=== PATIENT | female | born 2000 | race Caucasian/White ===

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

== ENCOUNTER 2024-01-06 00:17 | Emergency (ER) | payer OTHER, SELFPAY ==
[2024-01-06 00:19] VITALS: BP 146/80; PULSE 94; RESP 17; TEMP 36.8; O2SAT 99; BMI 54.3
--- NOTE | 2024-01-06 00:41 | [facility].EDGENADL ---
Discharge Plan Disposition Patient Disposition: Home, Self-Care Prescriptions Prescriptions: New ondansetron HCl 4 mg tablet 4 mg PO Q8H PRN (Reason: nausea and vomiting) 5 Days Qty: 30 0RF amoxicillin-pot clavulanate 875-125 mg tablet 1 tab PO BID 7 Days Qty: 14 0RF Referrals Follow up/Referrals: Tristen Blount [Primary Care Provider] - See instructions Activity Restrictions/Add. Instructions Additional Instructions/Restrictions: Please take antibiotics as prescribed for treatment of urinary tract infection. Please take Zofran as needed for nausea vomiting and dehydration. Please establish follow-up with [facility]. Clinical Impressions Clinical Impression: UTI (urinary tract infection), Nausea and vomiting during Instructions Patient Instructions: DI for Diarrhea and Traveler's Diarrhea -- Adult, DI for Diarrhea and Traveler's Diarrhea -- Child, DI for Nausea -- Adult, DI for Nausea -- Child Discharge ED Provider: Nik Ellis General Adult HPI General Chief complaint: Nausea/Vomiting/Diarrhea Stated complaint: vomiting Time Seen by Provider: 01/06/24 00:25 Mode of Arrival: Ambulatory Source of Information: Patient Limitations: No Limitations Description of Symptoms (Recalled from ER Triage Doc. by RN): Pt ambulatory to ED with c/o vomiting since last night. states she has vomited over 30 times today and can't keep water down. Pt states she had 3 positive home tests and a positine urine preg test from the health department. pt states her LMP was 5/19. Pt also reports headache that started after the vomiting and lower abd pain. denies vaginal DC or bleeding. History of Present Illness HPI narrative: 23-year-old female, G2, P1, at approximately 6 weeks by last menstrual period, presents with multiple complaints. She reports that today she has been vomiting every time she tries to eat or drink and cannot keep things down. She feels dehydrated. She reports a headache. She reports she did not have any significant problems with nausea vomiting during her first . She reports some increased urinary frequency but decreased volume, denies any pain. Related Data Previous Rx's Medication Instructions Recorded amoxicillin 875 mg-potassium 1 tab PO BID 7 days #14 tabs 01/06/24 clavulanate 125 mg tablet ondansetron HCl 4 mg tablet 4 mg PO Q8H PRN nausea and 01/06/24 vomiting 5 days #30 tabs Allergies Allergy/AdvReac Type Severity Reaction Status Date / Time No Known Allergies Allergy Verified 10/22/19 12:36 [facility] Disclaimer: The information contained in this section may have been updated after the patient was seen, as this information can be updated by other users. Social History Smoking Status: Never smoker alcohol intake: never current occupational status: employed Travel in the last 8 weeks: None ROS Obtained: Yes All systems reviewed & no additional complaints except as documented Physical Exam General General appearance: alert and in no apparent distress Head Head exam: atraumatic and normocephalic Eye Eye exam: Present normal appearance, PERRL and EOMI ENT ENT exam: Present normal oropharynx, mucous membranes dry and normal external ear exam Neck Neck exam: Present normal inspection and full ROM Chest Chest inspection: Present normal inspection and symmetric chest wall rise; Absent tenderness Respiratory Respiratory exam: Present normal lung sounds bilaterally; Absent respiratory distress Cardiovascular Cardiovascular exam: Present regular rate and normal rhythm Abdominal Exam Abdominal exam: Present soft; Absent distention, tenderness or guarding Extremities Exam Extremities exam: Present normal inspection; Absent edema or joint swelling Back Exam Back exam: Present normal inspection; Absent tenderness Neurological Exam Neurological exam: Present alert and oriented X3; Absent motor sensory deficit Psychiatric Psychiatric exam: Present normal affect and normal mood Skin Skin exam: Present warm, dry and normal color Lymphatic Lymphatic Findings: no adenopathy Medical Decision Making Medical Records Medical records reviewed: Yes I reviewed the patient's medical records. Cesar Inquiry Pt receiving controlled substance: No Cesar was queried for this patient: No Vital Signs: 01/06/24 00:19 Temperature 98.2 F Temperature Source Oral Pulse Rate [Left Radial] 94 H Respiratory Rate 17 Blood Pressure [Right Arm] 146/80 H Blood Pressure Mean [Right Arm] 102 Blood Pressure Source [Right Arm] Automatic Cuff Blood Pressure Position [Right Arm] Sitting 02 Sat by Pulse Oximetry 99 Oxygen Delivery Method Room Air Lab Data Lab results reviewed: Yes I reviewed the patient's lab results. Lab Results 01/06/24 00:41: WBC 7.5, RBC 4.12 L, Hgb 12.1 L, Hct 35.9 L, MCV 87.1, MCH 29.3, MCHC 33.7, RDW 14.4, Plt Count 298, MPV 8.6, Neut % (Auto) 65.9, Lymph % (Auto) 27.5, [place] % (Auto) 3.6, Eos % (Auto) 2.4, Baso % (Auto) 0.7, Neut # (Auto) 4.9, Lymph # (Auto) 2.1, [place] # (Auto) 0.3, Eos # (Auto) 0.2, Baso # (Auto) 0.1, Sodium 138, Potassium 3.4 L, Chloride 103, Carbon Dioxide 26, Anion Gap 12.4, BUN 13, Creatinine 0.90, Estimated Creat Clear 84, Estimated GFR 78, Est GFR ( Amer) 94, Glucose 96, Calcium 9.2, Magnesium 1.7, Total Bilirubin 0.5, AST 36, ALT 44, Alkaline Phosphatase 62, Total Protein 8.0, Albumin 4.1, Globulin 3.9 H, Albumin/Globulin Ratio 1.1, Lipase 85, HCG, Quant [id number] H 01/06/24 01:00: Urine Color Dark yellow, Urine Appearance Turbid, Urine pH 6.0, Ur Specific [place] >= 1.030, Urine Protein Negative, Urine Glucose (UA) Negative, Urine Ketones Negative, Urine Blood 1+, Urine Nitrate Positive, Urine Bilirubin Negative, Urine Urobilinogen 0.2, Ur Leukocyte Esterase Trace, Urine RBC Occasional, Urine WBC 20-50, Ur Squamous Epith Cells 3-5, Urine Bacteria 4+, Urine Mucus Trace 01/06/24 00:41 01/06/24 00:41 Orders (Tests/Meds): ED MEDICATIONS Generic Name Dose Route Start Last Admin Trade Name Freq PRN Reason Stop Dose Admin Lactated Ringer's 1,000 mls @ 999 mls/hr 01/06/24 00:45 01/06/24 01:32 Lactated Ringer's 1000 Ml Bag IV 01/06/24 02:45 999 mls/hr .Q1H1M NOHEMY Administration Discontinued Medications Generic Name Dose Route Start Last Admin Trade Name Freq PRN Reason Stop Dose Admin Acetaminophen 1,000 mg 01/06/24 00:38 01/06/24 00:46 Acetaminophen 500mg Tab PO 01/06/24 00:39 1,000 mg ONCE ONE Administration Amoxicillin/Clavulanate Potassium 1 each 01/06/24 02:03 Amoxicillin/Clavulanate Potassium 875/125mg Tablet PO 07/01/24 02:04 ONCE ONE Diphenhydramine HCl 25 mg 01/06/24 00:38 01/06/24 00:46 Diphenhydramine 25mg Capsule PO 01/06/24 00:39 25 mg ONCE ONE Administration Metoclopramide HCl 10 mg 01/06/24 00:38 01/06/24 00:46 Metoclopramide Hcl 10mg/2ml Vial IVP 01/06/24 00:39 10 mg ONCE ONE Administration Potassium Chloride 40 meq 01/06/24 01:11 01/06/24 01:27 Potassium Chloride 20meq Tab PO 01/06/24 01:12 40 meq ONCE ONE Administration ORDERS Category Date Time Status Beta HCG, Quant [HCG,Quantitative] Stat Lab 01/06/24 00:41 Completed CBC w/Auto Diff [Complete Blood Count Auto Diff] Stat Lab 01/06/24 00:41 Completed CMP [Comprehensive Metabolic Panel] Stat Lab 01/06/24 00:41 Completed Lipase Stat Lab 01/06/24 00:41 Completed Magnesium Stat Lab 01/06/24 00:41 Completed UA [Urinalysis and Microscopic] Stat Lab 01/06/24 01:00 Completed Urine Culture Stat Micro 01/06/24 01:00 Received Medical Decision Narrative: 23-year-old female, reportedly is 6 weeks , presents with 1 day of significant nausea and vomiting, especially after eating. Also complains of a headache and increased urinary frequency.. History was obtained interactive discussion with patient. On arrival, patient is [afebrile, hemodynamically stable, satting appropriately, alert, oriented x4, GCS 15], moving all extremities spontaneously. Full physical exam performed and significant for benign abdominal exam, dry mucous membranes Differential includes but is not limited to dehydration, electrolyte derangement, gastroenteritis, pancreatitis, tension headache migraine headache Patient was given migraine and antiemetic cocktail as well as to the IV fluid bolus for symptomatic management and correction of underlying abnormalities. Workup initiated including CBC CMP quantitative beta hCG mag urinalysis. On re-evaluation, patient [remains afebrile, HD stable.] Reports complete resolution of her headache, no more nausea or vomiting after interventions. Laboratory workup independently interpreted by me and significant for mild hypokalemia, no significant leukocytosis, urine consistent with urinary tract infection, positive nitrates, 20-50 WBCs, 4+ bacteria. Given patient history, exam and workup, patient's presentation most likely represents nausea and vomiting in with associated urinary tract infection and dehydration. Patient has no flank pain, fever or leukocytosis to suggest pyelonephritis. Patient reports that she has 2 antibiotic allergies but knows that it is okay for her to take penicillins. Given this, we will treat with Augmentin. Patient was given a dose in the ED and discharged with prescription. She was also given a prescription for Zofran given she is having significant nausea vomiting producing hypovolemia. Patient is agreeable to plan and discharged in stable condition.. Procedures Risk/Benefits of Procedure(s) Were Explained: Yes Critical Care Critical Care Time Critical Care Time: No
--- NOTE | 2024-01-06 00:44 | PC.NURSE ---
Established an 18ga IV in patients R AC, labs collected and sent to the lab. Administered medication as per the SEP.
[2024-01-06] MEDS: diphenhydrAMINE 25MG CAPSULE 25 MG PO (00:46)
[2024-01-06] MEDS: METOCLOPRAMIDE HCL 10MG/2ML VIAL 10 MG IVP (00:46)
[2024-01-06] MEDS: LACTATED RINGERS 1000ML 1,000 ML 999 ML IV ×2 (00:46→01:32)
[2024-01-06] MEDS: ACETAMINOPHEN 500MG TAB 1000 MG PO (00:46)
[2024-01-06 00:55] LABS: Basophils # 0.1 K/mm3 (0-0.2); Basophils % 0.7 % (0.1-2.0); Eosinophils # 0.2 K/mm3 (0.0-0.4); Eosinophils % 2.4 % (0.1-12.0); Hematocrit 35.9 % (37.0-47.0); Hemoglobin 12.1 g/dL (12.2-16.2); Lymphocytes # 2.1 K/mm3 (0.7-4.5); Lymphocytes % 27.5 % (10-50); Mean Corpuscular HGB Conc 33.7 g/dL (31.8-35.4); Mean Corpuscular Hemoglobin 29.3 pg (27.0-31.2); Mean Corpuscular Volume 87.1 fl (81-99); Mean Platelet Volume 8.6 fl (7.4-10.4); Monocytes # 0.3 K/mm3 (0.1-1.0); Monocytes % 3.6 % (1.7-9.3); Neutrophils # 4.9 K/mm3 (1.8-7.8); Neutrophils % 65.9 % (37.0-80.0); Platelet Count 298 K/mm3 (142-424); Red Blood Count 4.12 M/mm3 (4.20-5.40); Red Cell Distribution Width 14.4 % (11.5-17.5); White Blood Count 7.5 K/mm3 (4.8-10.8)
[2024-01-06 00:58] LABS: Chloride 103 mmol/L (98-107); Sodium 138 mmol/L (136-145)
[2024-01-06 00:59] LABS: Potassium 3.4 mmoL/L (3.5-5.1)
[2024-01-06 01:01] LABS: Alanine Aminotransferase 44 U/L (12-78); Albumin Level 4.1 g/dl (3.5-5.0); Albumin/Globulin Ratio 1.1 (1.1-1.8); Alkaline Phosphatase 62 U/L (38-126); Anion Gap 12.4 mEq/L (5-15); Aspartate Amino Transferase 36 U/L (14-36); Bilirubin,Total 0.5 mg/dl (0.2-1.3); Blood Urea Nitrogen 13 mg/dl (7-17); Calcium 9.2 mg/dl (8.4-10.2); Carbon Dioxide 26 mmol/L (22.0-30.0); Creatinine Clearance Estimated 84 mL/min (50-200); Estimated Glomerular Filt Rate 78 ml/min (>60); GFR (African American) 94 ML/MIN (>60); Globulin 3.9 g/dL (1.3-3.2); Glucose 96 mg/dl (74-100); Lipase 85 U/L (23-300)
[2024-01-06 01:02] LABS: Magnesium 1.7 mg/dl (1.6-2.3)
--- NOTE | 2024-01-06 01:02 | PC.NURSE ---
Collected Urine and sent to the lab
[2024-01-06 01:04] LABS: Microscopic, Urine URINE MICROSCOPIC (MICROSCOPIC)
[2024-01-06 01:10] LABS: Bilirubin,Urine Negative (Negative); Blood, Urine 1+ (Negative); Glucose,Urine (UA) Negative (Negative); Ketones,Urine Negative (Negative); Leukocyte Esterase,Urine TRACE (Negative); Nitrate,Urine POSITIVE (Negative); Protein,Urine Negative (Negative); Specific Gravity, Urine >= 1.030 (1.005-1.030); Urobilinogen,Urine 0.2 EU/dl (0.2)
[2024-01-06] MEDS: POTASSIUM CHLORIDE 20MEQ TAB 40 MEQ PO (01:27)
[2024-01-06 01:29] LABS: Appearance,Urine Turbid (Clear); Color,Urine Dark Yellow (Yellow)
[2024-01-06 01:43] LABS: HCG,Quantitative 26204 mIU/ml (0-5.42)
--- NOTE | 2024-01-06 01:49 | PC.NURSE ---
rounded on pt at this time. pt voices no needs. states symptoms have resolved.
[2024-01-06 01:51] LABS: WBC,Urine 20-50 #/hpf (0-3)
[2024-01-06 01:53] LABS: RBC,Urine Occasional #/hpf (0-3)
[2024-01-06 01:55] LABS: Bacteria,Urine 4+ /lpf; Mucus,Urine Trace /lpf
[2024-01-06] MEDS: AMOXICILLIN/CLAVULANATE POTASSIUM 875/125MG TABLET 1 EACH PO (02:09)
[2024-01-06 02:14] VITALS: BP 112/57; PULSE 79; RESP 16; TEMP 36.5; O2SAT 99
--- NOTE | 2024-01-07 18:23 | PC.NURSE ---
attempted to call pt from numbers listed in chart, numbers are not in service, aware
== END 2024-01-06 02:15 | disposition home or self-care (01) ==
PROVIDERS: Emergency Provider Emergency Medicine; PCP Family Medicine
DX: O23.41 Unspecified infection of urinary tract in pregnancy, first trimester (principal); B96.29 Other Escherichia coli [E. coli] as the cause of diseases classified elsewhere; O21.9 Vomiting of pregnancy, unspecified; Z3A.01 Less than 8 weeks gestation of pregnancy; E87.6 Hypokalemia; R51.9 Headache, unspecified
CPT/HCPCS: 80053; 81001; 83690; 83735; 84702; 85025; 87086; 87088; 87186; 96361; 96374; 99284; J2765; J7120